=== PATIENT | male | born 1985 | race Two or more races ===

== ENCOUNTER 2017-12-20 10:59 | Emergency (ER) | payer SELFPAY ==
[~2017-12-20] VITALS: Ht 167.6 cm; Wt 90.7 kg
[2017-12-20 11:07] VITALS: BP 113/66
--- NOTE | 2017-12-20 11:13 | Emergency Room Report ---
History of Present Illness General Chief Complaint: Abdominal Pain Source: Patient, EMS Present Illness HPI Patient is a 32-year-old male who presented after increased right-sided testicular pain and right flank pain. Patient had prior history of inguinal hernia. He reported having increased pain starting last night. And waxing and waning in nature. He had prior history of ventral hernia. He reports having normal bowel movement last night. He had not been having any fever. Patient is brought in by EMS. Allergies: Coded Allergies: No Known Allergies (Unverified , 12/20/17) Patient History Past Medical History: see triage record Reviewed Nursing Documentation: PMH: Agreed; PSxH: Agreed Nursing Documentation-PMH Past Medical History: No Stated History Review of Systems All Other Systems: negative except mentioned in HPI Physical Exam Vital Signs Date Time Temp Pulse Resp B/P (MAP) Pulse Ox O2 Delivery O2 Flow Rate FiO2 12/20/17 10:57 98.5 88 20 113/66 98 Room Air 98.4 Sp02 EP Interpretation: reviewed, normal General Appearance: normal inspection, well appearing, no apparent distress, alert, GCS 15, non-toxic Head: atraumatic ENT: normal ENT inspection, hearing grossly normal, normal voice Neck: normal inspection, full range of motion, supple, no bony tend Respiratory: normal inspection, lungs clear, normal breath sounds, no respiratory distress, no retraction, no wheezing Cardiovascular #1: regular rate, rhythm, no edema Gastrointestinal: normal inspection, normal bowel sounds, non tender, soft, no guarding, no hernia Genitourinary: no CVA tenderness Musculoskeletal: normal inspection, back normal, normal range of motion Neurologic: normal inspection, alert, responsive, speech normal Psychiatric: normal inspection, judgement/insight normal, mood/affect normal Skin: normal inspection, normal color, no rash Medical Decision Making Diagnostic Impression: Primary Impression: Kidney stone Additional Impression: Ventral hernia ER Course Patient presented for flank pain. Differential diagnosis included was not limited to incarcerated hernia, pneumonia, renal stone, rib fracture, pulmonary embolism, ulcer, enteritis, testicular torsion, pyelonephritis among others. Because of complexity of patient's case laboratory testing and imaging studies were ordered. Patient was noted to have evidence of a recently passed ureteral stone on CT imaging. The hernia appears to be nonincarcerated with no evidence of bowel obstruction. The patient was given he pain medications as well as IV fluids. The patient shows small stone and may have some continued small stone which was not visualized on CT. The patient is advised to follow up with primary care doctor in 1-2 daysfor urology referral. Patient is advised to return if any worsening condition or if any changes in status that are concerning. This report is dictated with [employer] liquid floor and wall applier software which may occasionally lead to discrepancies related to use of this software. Labs Test 12/20/17 11:05 White Blood Count 7.2 K/UL (4.8-10.8) Red Blood Count 5.36 M/UL (4.70-6.10) Hemoglobin 14.8 G/DL (14.2-18.0) Hematocrit 45.5 % (42.0-52.0) Mean Corpuscular Volume 85 FL (80-99) Mean Corpuscular Hemoglobin 27.7 PG (27.0-31.0) Mean Corpuscular Hemoglobin Concent 32.6 G/DL (32.0-36.0) Red Cell Distribution Width 12.4 % (11.6-14.8) Platelet Count 260 K/UL (150-450) Mean Platelet Volume 6.8 FL (6.5-10.1) Neutrophils (%) (Auto) 44.3 % (45.0-75.0) Lymphocytes (%) (Auto) 43.1 % (20.0-45.0) Monocytes (%) (Auto) 9.5 % (1.0-10.0) Eosinophils (%) (Auto) 1.2 % (0.0-3.0) Basophils (%) (Auto) 1.9 % (0.0-2.0) Prothrombin Time 9.9 SEC (9.30-11.50) Prothromb Time International Ratio 0.9 (0.9-1.1) Activated Partial Thromboplast Time 24 SEC (23-33) Sodium Level 138 MMOL/L (136-145) Potassium Level 3.6 MMOL/L (3.5-5.1) Chloride Level 103 MMOL/L (98-107) Carbon Dioxide Level 26 MMOL/L (21-32) Anion Gap 9 mmol/L (5-15) Blood Urea Nitrogen 18 mg/dL (7-18) Creatinine 1.2 MG/DL (0.55-1.30) Estimat Glomerular Filtration Rate > 60 mL/min (>60) Glucose Level 170 MG/DL (74-106) Calcium Level 8.6 MG/DL (8.5-10.1) Total Bilirubin 0.3 MG/DL (0.2-1.0) Aspartate Amino Transf (AST/SGOT) 39 U/L (15-37) Alanine Aminotransferase (ALT/SGPT) 51 U/L (12-78) Alkaline Phosphatase 96 U/L (46-116) Total Protein 7.9 G/DL (6.4-8.2) Albumin 4.1 G/DL (3.4-5.0) Globulin 3.8 g/dL Albumin/Globulin Ratio 1.1 (1.0-2.7) Lipase 89 U/L (73-393) Last Vital Signs Date Time Temp Pulse Resp B/P (MAP) Pulse Ox O2 Delivery O2 Flow Rate FiO2 12/20/17 10:57 98.5 88 20 113/66 98 Room Air 98.4 Status: improved Disposition: HOME, SELF-CARE Condition: Stable Scripts Cephalexin* (KEFLEX*) 500 Mg Capsule 500 MG ORAL EVERY 6 HOURS, #28 CAP 0 Refills Prov: Hiro Roca 12/20/17 Hydrocodone Bit/Acetaminophen 5-325* (NORCO 5-325*) 1 Each Tablet 1 TAB ORAL Q6H PRN for For Pain, #10 TAB 0 Refills Prov: Hiro Roca 12/20/17 Hiro Roca Dec 20, 2017 11:13
[2017-12-20] MEDS ORDERED: Morphine Sulfate 4mg/ml Inj IVP ONE ×2 (11:15→13:45)
[2017-12-20] MEDS ORDERED: Ketorolac 30mg Inj IV ONE (11:15)
[2017-12-20 11:39] LABS: BASOPHILS % (AUTO) 1.9 % (0.0-2.0); EOSINOPHILS % (AUTO) 1.2 % (0.0-3.0); HEMATOCRIT 45.5 % (42.0-52.0); HEMOGLOBIN 14.8 G/DL (14.2-18.0); LYMPHOCYTES % (AUTO) 43.1 % (20.0-45.0); MEAN CORPUSCULAR VOLUME 85 FL (80-99); MONOCYTES % (AUTO) 9.5 % (1.0-10.0); NEUTROPHILS % (AUTO) 44.3 % (45.0-75.0); PLATELET COUNT 260 K/UL (150-450); RED BLOOD COUNT 5.36 M/UL (4.70-6.10); RED CELL DISTRIBUTION WIDTH 12.4 % (11.6-14.8); WHITE BLOOD COUNT 7.2 K/UL (4.8-10.8)
[2017-12-20 11:44] LABS: ANION GAP 9 mmol/L (5-15); BLOOD UREA NITROGEN 18 mg/dL (7-18); CALCIUM 8.6 MG/DL (8.5-10.1); CARBON DIOXIDE 26 MMOL/L (21-32); CHLORIDE 103 MMOL/L (98-107); CREATININE 1.2 MG/DL (0.55-1.30); POTASSIUM 3.6 MMOL/L (3.5-5.1); SODIUM 138 MMOL/L (136-145)
[2017-12-20 11:45] LABS: INR 0.9 (0.9-1.1)
[2017-12-20 11:49] LABS: ALANINE AMINOTRANSFERASE 51 U/L (12-78); ALBUMIN 4.1 G/DL (3.4-5.0); ALBUMIN/GLOBULIN RATIO 1.1 (1.0-2.7); ALKALINE PHOSPHATASE 96 U/L (46-116); ASPARTATE AMINO TRANSFERASE 39 U/L (15-37); BILIRUBIN,TOTAL 0.3 MG/DL (0.2-1.0)
[2017-12-20 12:25] VITALS: BP 130/85
--- NOTE | 2017-12-20 12:33 | Diagnostic Imaging Report ---
Indication: Right sided flank pain Technique: CT of the abdomen and pelvis utilizing automated exposure control with intravenous contrast. Venous scanning performed. CT dose: Total DLP 1128.89 mGycm; CTDI vol 17.93 mGy Comparison: None Findings: Please note that evaluation of the abdominal and pelvic structures is limited without the use of intravenous and oral contrast. Within these limitations, the following observations are made: Dependent atelectasis noted in the posterior lower lobes. Heart size within normal limits. Question subtle hepatic steatosis. This can be confirmed with hepatic ultrasound or a nonemergent basis. Liver contour is smooth. Noncontrast evaluation of the gallbladder, spleen, adrenal glands and pancreas is grossly unremarkable. There is subtle fullness of the right renal collecting system and asymmetric fullness size dilatation of the right ureter with questionable right periureteric stranding. A 3 mm stone is noted within the bladder (series 3 image #141).. No urinary tract stone or hydronephrosis seen on the left. There is very minimal perinephric stranding on the right. Bladder is otherwise unremarkable. Prostate normal in size. No evidence of bowel obstruction. No free intraperitoneal air or fluid. Appendix is normal. No pathologically enlarged lymphadenopathy. There is no acute osseous abnormality. There is a tiny fat-containing umbilical hernia. IMPRESSION: Mild asymmetric fullness of the right renal collecting system and right ureter with very subtle right perinephric/periureteric stranding. 3 mm stone noted within the bladder. Findings likely related to passing right-sided stone. Correlation with urinalysis recommended to exclude superimposed infection. No urinary tract stone or hydronephrosis noted on the left. Appendix is normal. No is of bowel obstruction or inflammation. Question mild hepatic steatosis. Confirmation with nonemergent ultrasound of the abdomen recommended. The CT scanner at [facility] is accredited by the [employer] and the scans are performed using protocols designed to limit radiation exposure to as low as reasonably achievable to attain images of sufficient resolution adequate for diagnostic evaluation.
[2017-12-20] MEDS ORDERED: NORCO 5-325 TA1 EACH ORAL (13:30)
[2017-12-20] MEDS ORDERED: KEFLEX500 MG ORAL (13:30)
[2017-12-20 13:35] VITALS: BP 127/82
[2017-12-20 13:47] VITALS: BP 127/82
== END 2017-12-20 14:00 | disposition home or self-care (01) ==
LOC: EDBD 10:59 → EMR 11:57
DX: K43.9 Ventral hernia without obstruction or gangrene (principal); N20.0 Calculus of kidney
CPT/HCPCS: 36415; 74176; 80053; 83690; 85025; 85610; 85730; 86850; 86900; 86901; 96374; 96375; 99284; J1885; J2270; J2405

== ENCOUNTER 2020-09-14 00:29 | Emergency (ER) | payer OTHER ==
[~2020-09-14] VITALS: Ht 162.6 cm; Wt 81.6 kg
[~2020-09-14 00:29] MED LIST: KEFLEX500 MG ORAL; NORCO 5-325 TA1 EACH ORAL
--- NOTE | 2020-09-14 00:37 | Emergency Room Report ---
History of Present Illness General Chief Complaint: Flu Like Symptoms Source: Patient Present Illness HPI 35-year-old male here with 2 days of fever and cough and subjective shortness of breath. Patient does not have any past medical history. Lives with his mother. Unaware of whether he has been exposed to COVID-19. Denies chills, chest pain, palpitation, back pain, abdominal pain, nausea, vomiting, diarrhea, dysuria, leg swelling. Allergies: Coded Allergies: No Known Allergies (Unverified , 12/20/17) COVID-19 Screening Contact w/high risk pt: No Experienced COVID-19 symptoms?: Yes COVID-19 Testing performed TIMBER RIDER: No Nursing Documentation-PMH Past Medical History: No Stated History Review of Systems All Other Systems: negative except mentioned in HPI Physical Exam Vital Signs Date Time Temp Pulse Resp B/P (MAP) Pulse Ox O2 Delivery O2 Flow Rate FiO2 09/14/20 00:30 102.0 110 22 112/78 (89) 95 Room Air Sp02 EP Interpretation: reviewed, normal General Appearance: no apparent distress, alert, non-toxic Head: normocephalic, atraumatic Eyes: bilateral eye normal inspection, bilateral eye PERRL ENT: hearing grossly normal, normal pharynx, no angioedema, normal voice Neck: full range of motion, supple/symm/no masses Respiratory: chest non-tender, normal breath sounds, speaking full sentences, other - Very mild rales in the lower lung alcaraz Cardiovascular #1: regular rate, rhythm, no edema Cardiovascular #2: 2+ carotid (R), 2+ carotid (L), 2+ radial (R), 2+ radial (L), 2+ dorsalis pedis (R), 2+ dorsalis pedis (L) Gastrointestinal: normal bowel sounds, non tender, soft, non-distended, no guarding, no rebound Rectal: deferred Genitourinary: normal inspection, no CVA tenderness Musculoskeletal: back normal, normal range of motion, gait/station normal, non- tender Neurologic: alert, motor strength/tone normal, oriented x3, sensory intact, responsive, speech normal Psychiatric: judgement/insight normal, memory normal, mood/affect normal, no suicidal/homicidal ideation Lymphatic: no adenopathy Medical Decision Making Diagnostic Impression: Primary Impression: Suspected COVID-19 virus infection Additional Impression: Influenza-like symptoms ER Course 35-year-old male with no relevant past medical history here with fever and cough and subjective shortness of breath. Patient normal vital signs including a normal oxygen saturation on room air in the emergency department. He was febrile and was given Tylenol. He was in no acute distress whatsoever. PERC negative. Chest x-ray showed some small diffuse interstitial infiltrates in the lower lung lobes. He was given a prescription for azithromycin, multivitamin, Tessalon Perles, acetaminophen. Told to come back to the emergency department worsening symptoms or a low pulse oxygen saturation. Instructed to obtain a pulse ox monitor. He expressed understanding and was discharged. Chest x-ray: Very small diffuse interstitial infiltrates in the lower lung alcaraz. No large consolidation. No pleural effusion. No free air under the diaphragm. No bony abnormalities Last Vital Signs Date Time Temp Pulse Resp B/P (MAP) Pulse Ox O2 Delivery O2 Flow Rate FiO2 09/14/20 00:30 102.0 110 22 112/78 (89) 95 Room Air Scripts Acetaminophen* (ACETAMINOPHEN 325MG TABLET*) 325 Mg Tablet 325 MG ORAL Q6H PRN for For Pain, #14 TAB Prov: Santo Laureano M.D. 09/14/20 Benzonatate* (TESSALON PERLE*) 100 Mg Capsule 100 MG ORAL THREE TIMES A DAY for 4 Days, PERLE Prov: Santo Laureano M.D. 09/14/20 Cholecalciferol (Vitamin D3) (Vitamin D3*) 25 Mcg Capsule 25 MCG PO DAILY for Supplement for 30 Days, CAP Prov: Santo Laureano M.D. 09/14/20 Azithromycin* (ZITHROMAX*) 250 Mg Tablet 250 MG ORAL DAILY, #6 TAB 0 Refills Take two tables once daily for 1 day, then one tablet once daily for 4 days. Prov: Santo Laureano M.D. 09/14/20 Santo Laureano M.D. Sep 14, 2020 00:37
--- NOTE | 2020-09-14 00:50 | NUR ---
ED Nurse Note: Pt brought in by [facility] 26 due to sob x8 days and dy cough. According to the pt;he did not get tested and he was staying in the house. vitals are stable; O2 97% in a room air. pt has coughing, and fever.
--- NOTE | 2020-09-14 00:50 | NUR ---
ED Nurse Note: elio put 18g iv line and he came with it
[2020-09-14] MEDS ORDERED: VITAMIN D325 MC1 PO (01:01)
[2020-09-14] MEDS ORDERED: ZITHROMAX250 MG ORAL (01:01)
[2020-09-14] MEDS ORDERED: TESSALON PERLE100 MG ORAL (01:01)
[2020-09-14] MEDS ORDERED: ACETAMINOPHEN325 M1 ORAL (01:05)
--- NOTE | 2020-09-14 01:14 | NUR ---
ER DISCHARGE NOTE: Patient is cleared to be discharged per ERMD, pt is aox4, on room air, with stable vital signs. pt was given dc and prescription instructions, pt was able to verbalize understanding, pt id band and iv site removed without complications. pt is able to ambulate with steady gait. pt took all belongings.
[2020-09-14 01:18] VITALS: BP 112/78
--- NOTE | 2020-09-14 09:26 | Diagnostic Imaging Report ---
Indication: Cough Technique: XRAY Chest 1v Comparison: None Findings: Limited exam with low lung volumes. Mild dependent/expiratory atelectatic changes at the bases. No focal consolidation, pleural effusion or pneumothorax. Heart size and mediastinal contours within normal limits. No acute osseous abnormality. Impression: Limited exam. Low lung volumes with dependent/atelectatic changes at the bases. No definite radiographic evidence of acute cardiopulmonary disease.
== END 2020-09-14 01:14 | disposition home or self-care (01) ==
LOC: EDUNIT# 00:29 → EDBD 00:29 → EMR 00:38
DX: J11.1 Influenza due to unidentified influenza virus with other respiratory manifestations (principal); R50.9 Fever, unspecified; R05 Cough; R06.02 Shortness of breath
CPT/HCPCS: 71045; Z7502; 99283